=== PATIENT | female | born 1950 | race Caucasian/White ===

== ENCOUNTER 2016-12-20 19:16 | Emergency (ER) | payer BC ==
[~2016-12-20] VITALS: Ht 152.4 cm; Wt 57.3 kg
[~2016-12-20 19:16] MED LIST: advil PO; miralax PO
[2016-12-20 19:33] VITALS: Ht 152.4 cm; Wt 57.3 kg
[2016-12-20] MEDS ORDERED: SOD CHLORIDE 0.9% 1,000 ML IV STA (19:41)
[2016-12-20 20:01] LABS: ADD SCAN DIFF NO
[2016-12-20 20:03] LABS: BASOPHILS % 0.2 % (0.0-2.0); EOSINOPHILS # 0.1 10^3/ul (0.0-0.5); EOSINOPHILS % 1.2 % (0.0-7.0); HEMATOCRIT 35.9 % (37.0-47.0); HEMOGLOBIN 12.1 g/dl (12.0-16.0); LYMPHOCYTES # 2.9 10^3/ul (0.8-2.9); LYMPHOCYTES % 28.3 % (15.0-51.0); MEAN CORPUSCULAR HEMOGLOBIN 32.2 pg (29.0-33.0); MEAN CORPUSCULAR HGB CONC 33.7 g/dl (32.0-37.0); MEAN CORPUSCULAR VOLUME 95.5 fl (82.0-101.0); MEAN PLATELET VOLUME 10.9 fl (7.4-10.4); MONOCYTE # 0.7 10^3/ul (0.3-0.9); MONOCYTES % 6.5 % (0.0-11.0); NEUTROPHIL # 6.4 10^3/ul (1.6-7.5); NEUTROPHILS % 63.3 % (39.0-77.0); NUCLEATED RED BLOOD CELLS% 0.2 /100WBC (0.0-0.0); PLATELET COUNT 233 10^3/UL (140-415); RED BLOOD COUNT 3.76 10^6/ul (4.20-5.40); RED CELL DISTRIBUTION WIDTH 16.5 % (11.5-14.5); WHITE BLOOD COUNT 10.1 10^3/ul (4.8-10.8)
[2016-12-20 20:08] LABS: ADD UMIC YES; URINE BILIRUBIN (Dip) NEGATIVE (NEGATIVE); URINE BLOOD (Dip) 1+ (NEGATIVE); URINE COLOR LT. YELLOW (YELLOW); URINE GLUCOSE (Dip) NEGATIVE (NEGATIVE); URINE KETONES (Dip) NEGATIVE (NEGATIVE); URINE LEUKOCYTE ESTERASE (Dip) NEGATIVE (NEGATIVE); URINE NITRITE (Dip) NEGATIVE (NEGATIVE); URINE TOTAL PROTEIN (Dip) NEGATIVE (NEGATIVE); URINE UROBILINOGEN (Dip) 0.2 E.U./dL (0.1-1.0)
--- NOTE | 2016-12-20 20:11 | RADRPT ---
PROCEDURE: CT Brain without contrast. CLINICAL INDICATION: r/o bleed TECHNIQUE: A CT of the brain was performed on a multidetector CT scanner utilizing axial imaging f rom the skull base through the vertex without IV contrast. Multiplanar reformatted images were made . Images were reviewed on a PACS workstation. The CTDIvol is 43 mGy and the DLP is 720 mGycm. COMPARISON: None FINDINGS: Noted is an arachnoid cyst in the anterior aspect of the right middle cranial fossa measuring 2 x 1 cm. No other discrete extra-axial fluid collection or masses present. Ventricles are in the midlin e and of normal contour and configuration. No intra-axial masses or regions of abnormal attenuation are seen. There is no intracranial hemorrhage. No skull fracture is visualized. IMPRESSION: No intracranial hemorrhage or skull fracture. Small arachnoid cyst right middle cranial fossa. .Toribio Loo MD, MD Date Time Electronically viewed and signed by .Toribio Loo MD, on 12/20/2016 20:11 .A/
[2016-12-20 20:17] LABS: SQUAMOUS EPITHELIAL CELL,UR OCCASIONAL
[2016-12-20 20:27] LABS: ALBUMIN 4.3 g/dl (3.3-4.9); INR 0.89; POTASSIUM 3.5 mmol/L (3.5-5.1); PT RATIO 0.9
[2016-12-20 20:29] LABS: BILIRUBIN,INDIRECT 0.1 mg/dl (0-1.1); BILIRUBIN,TOTAL 0.1 mg/dl (0.2-1.3); CREATININE 0.73 mg/dl (0.44-1.00)
[2016-12-20 20:30] LABS: ALBUMIN/GLOBULIN RATIO 1.1; CALCIUM 9.3 mg/dl (8.4-10.2); TOTAL PROTEIN 8.2 g/dl (6.1-8.1)
[2016-12-20] MEDS ORDERED: morphine 4 MG/ML VIAL IV STA (20:31)
[2016-12-20] MEDS ORDERED: ONDANSETRON 4 MG INJ IV STA (20:31)
[2016-12-20] MEDS ORDERED: SOD CHLORIDE 0.9% 100 ML ONE (21:16)
[2016-12-20] MEDS ORDERED: IOHEXOL 100 ML ONE (21:16)
--- NOTE | 2016-12-20 22:14 | RADRPT ---
PROCEDURE: CT angiogram neck and brain. CLINICAL INDICATION: Headaches. Clinical concern for aneurysm. TECHNIQUE: The study was performed utilizing 0.6 axial sections from the thoracic inlet to the andriy misty with the use of 95 cc of Omnipaque 350 intravenous contrast. Multiplanar and rotational MIP ref ormats were obtained. 3-D reconstructions were not performed. CTDIvol = 62.57 mGy and DLP = 464.31 mGycm. COMPARISON: Noncontrast head CT of 12/20/2016 FINDINGS: CTA neck: Right carotid system: No common carotid artery occlusion or atheromatous change of significance is present. The carotid bifurcation is normal. The internal carotid artery shows no evidence for occl usion or significant stenosis. The degree of internal carotid artery stenosis is estimated at less than 30%. Left carotid system:No common carotid artery occlusion or atheromatous change of significance is pre sent. The carotid bifurcation is normal. The internal carotid artery shows no evidence for occlusi on or significant stenosis. The degree of internal carotid artery stenosis is estimated at less than 30%. Internal carotid artery stenosis estimation is based upon NASCET criteria. Right vertebral artery: Codominant with the contralateral side with normal uniform caliber througho ut and no evidence of dissection, occlusion or stenosis. Left vertebral artery: Codominant in morphology with no evidence for dissection, stenosis or occlus ion. CTA brain: Anterior circulation: The intracranial internal carotid arteries show trace atherosclerotic calcifi cation of the cavernous and supraclinoid segments but are otherwise normal bilaterally with no evide nce for occlusion or stenosis. The anterior and middle cerebral arteries are also normal with no ev idence for narrowing. There is no vasculitis pattern or extraluminal projection of contrast to sugg est an aneurysm. Posterior circulation: Basilar artery is uniform in caliber with no evidence of stenosis. The basi lar tip is unremarkable for aneurysm. The posterior cerebral arteries are normal bilaterally as are the superior cerebellar arteries. No vascular malformation is identified. Venous structures: Sagittal sinuses appear patent without evidence of thrombus. Transverse and sig moid sinuses are unremarkable as is the torcula. Internal cerebral veins, vein of Jan and straigh t sinus show no abnormalities. No cortical vein abnormality is appreciated. RPTAT:HJJR IMPRESSION: 1. Unremarkable CT angiogram of the neck with no evidence of hemodynamically significant stenosis bi laterally. 2. Unremarkable CT angiogram of the brain with no evidence of aneurysm. Santy Stock, Physician Date Time Electronically viewed and signed by Santy Stock Physician on 12/20/2016 22:13 JR/
--- NOTE | 2016-12-20 22:39 | ERD ---
ER Documentation Chief Complaint Date/Time DATE: 12/20/16 TIME: 22:37 Chief Complaint MENDEZ since AM; worse this evening HPI This is a 66-year-old female with headache since this morning. She said she took [id number] medications going on Tylenol with no relief. It got worse this evening. Denies any fevers or chills. Denies any photophobia. Denies any neck stiffness. Denies any focal neurological complaints. Denies any visual acuity changes. Denies any other current issues. Pain is mild to moderate intensity, occipital in location with no exacerbating or alleviating factors. ROS All systems reviewed and are negative except as per history of present illness. Medications Home Meds Reported Medications [advil] No Conflict Check, PO DAILY Y for PAIN AND/OR INFLAMMATION 05/06/16 [miralax] No Conflict Check, PO DAILY 05/06/16 Allergies Allergies: Coded Allergies: No Known Drug Allergy (Verified Allergy, Mild, 05/06/16) PMhx/Soc History of Surgery: Yes (cholecystectomy, colonoscopy, APPENDECTOMY, BREAST REDUCTION) Anesthesia Reaction: No Hx Neurological Disorder: Yes (SCIATICA PAIN) Hx Respiratory Disorders: No Hx Cardiac Disorders: No Hx Psychiatric Problems: No Hx Miscellaneous Medical Probl: No Hx Alcohol Use: No Hx Substance Use: No Hx Tobacco Use: No Smoking Status: Never smoker Physical Exam Vitals Vital Signs Date Time Temp Pulse Resp B/P Pulse Ox O2 Delivery O2 Flow Rate FiO2 12/20/16 19:33 98.6 78 16 146/78 100 Physical Exam Const: [] Head: Atraumatic Eyes: Normal Conjunctiva ENT: Normal External Ears, Nose and Mouth. Neck: Full range of motion..~ No meningismus. Resp: Clear to auscultation bilaterally Cardio: Regular rate and rhythm, no murmurs Abd: Soft, non tender, non distended. Normal bowel sounds Skin: No petechiae or rashes Back: No midline or flank tenderness Ext: No cyanosis, or edema Neur: Awake and alert Psych: Normal Mood and Affect Result Diagram: 12/20/16194412/20/161944 Results 24 hrs Laboratory Tests Test 12/20/16 19:45 White Blood Count 10.110^3/ul Red Blood Count 3.7610^6/ul Hemoglobin 12.1g/dl Hematocrit 35.9% Mean Corpuscular Volume 95.5fl Mean Corpuscular Hemoglobin 32.2pg Mean Corpuscular Hemoglobin Concent 33.7g/dl Red Cell Distribution Width 16.5% Platelet Count 12631^3/UL Mean Platelet Volume 10.9fl Neutrophils % 63.3% Lymphocytes % 28.3% Monocytes % 6.5% Eosinophils % 1.2% Basophils % 0.2% Nucleated Red Blood Cells % 0.2/100WBC Neutrophils # 6.410^3/ul Lymphocytes # 2.910^3/ul Monocytes # 0.710^3/ul Eosinophils # 0.110^3/ul Basophils # 0.010^3/ul Nucleated Red Blood Cells # 0.010^3/ul Prothrombin Time 12.0Sec Prothrombin Time Ratio 0.9 INR International Normalized Ratio 0.89 Urine Color LT. YELLOW Urine Clarity CLEAR Urine pH 5.5 Urine Specific [place] 1.010 Urine Ketones NEGATIVE Urine Nitrite NEGATIVE Urine Bilirubin NEGATIVE Urine Urobilinogen 0.2 E.U./dL Urine Leukocyte Esterase NEGATIVE Urine Microscopic RBC 2-5/HPF Urine Microscopic WBC 0-2/HPF Urine Squamous Epithelial Cells OCCASIONAL Urine Hemoglobin 1+ Urine Glucose NEGATIVE% Urine Total Protein NEGATIVE Sodium Level 143mmol/L Potassium Level 3.5mmol/L Chloride Level 103mmol/L Carbon Dioxide Level 26mmol/L Anion Gap 18 Blood Urea Nitrogen 13mg/dl Creatinine 0.73mg/dl Glucose Level 125mg/dl Calcium Level 9.3mg/dl Total Bilirubin 0.1mg/dl Direct Bilirubin 0.00mg/dl Indirect Bilirubin 0.1mg/dl Aspartate Amino Transf (AST/SGOT) 22IU/L Alanine Aminotransferase (ALT/SGPT) 30IU/L Alkaline Phosphatase 119IU/L Total Protein 8.2g/dl Albumin 4.3g/dl Globulin 3.90g/dl Albumin/Globulin Ratio 1.10 Lipase 63U/L Current Medications Medications (Trade) Dose Ordered Sig/Noemí Route PRN Reason Start Time Stop Time Status Last Admin Dose Admin Sodium Chloride (NS) 1,000 ml @ 1,000 mls/hr Q1H STAT IV 12/20/16 19:41 12/20/16 20:40 DC 12/20/16 20:26 Ondansetron HCl (Zofran Inj) 4 mg ONCE STAT IV 12/20/16 20:31 12/20/16 20:33 DC 12/20/16 20:56 Morphine Sulfate (morphine) 4 mg ONCE STAT IV 12/20/16 20:31 12/20/16 20:33 DC 12/20/16 20:50 IV Flush 10 ml 10 ml STK-MED ONCE .ROUTE 12/20/16 21:16 12/20/16 21:17 DC Sodium Chloride 100 ml @ ud STK-MED ONCE .ROUTE 12/20/16 21:16 12/20/16 21:17 DC Iohexol (Omnipaque) 100 ml @ ud STK-MED ONCE .ROUTE 12/20/16 21:16 12/20/16 21:17 DC Procedures/MDM EKG: Rate/Rhythm: [Normal Sinus Rhythm] QRS, ST, T-waves: [No changes consistent w/ acute ischemia] Impression: [No evidence of ischemia or arrhythmia] Head CT is negative CT angiogram of the neck and brain were negative Medical decision-m[age] year female with a headache that is resolved with administration of pain medication in the emergency room. At this point clinically stable for outpatient management. Discharge home with tramadol and Zofran. Strict return precautions given to the patient at the bedside. Departure Diagnosis: Primary Impression: Headache Headache type: unspecified Headache chronicity pattern: acute headache Intractability: not intractable Qualified Code: R51 - Acute nonintractable headache, unspecified headache type Condition: Stable LORENZO CHRISTIANSON December 20, 2016 22:39
[2016-12-20] MEDS ORDERED: ONDA4TAB14 PO (22:41)
[2016-12-20] MEDS ORDERED: TRAM50TA2 PO (22:41)
[2016-12-20] MEDS ORDERED: KETOROLAC 15 MG INJ IV STA (23:03)
[2016-12-20 23:30] VITALS: BP 134/67; PULSE 84; RESP 15; TEMP 98.7
== END 2016-12-20 23:30 | disposition home or self-care (01) ==
LOC: E/R 19:16
DX: R51 Headache (principal)
CPT/HCPCS: 36415; 70450; 70496; 70498; 80053; 81001; 83690; 85025; 85610; 96374; 96375; 99285; J1885; J2270; J2405; J7030; Q9967; 81003

== ENCOUNTER 2017-11-12 09:00 | Day surgery (SDC) | END 2017-11-12 11:45 | disposition home or self-care (01) ==

== ENCOUNTER → 2018-01-19 | Outpatient (CLI) | END | disposition home or self-care (01) ==

== ENCOUNTER 2018-03-30 20:01 | Emergency (ER) | END 2018-03-30 22:00 | disposition home or self-care (01) ==

== ENCOUNTER 2019-04-23 17:47 | Emergency (ER) | payer BC ==
[~2019-04-23] VITALS: Wt 59.1 kg
[~2019-04-23 17:47] MED LIST changes: +ACYC800T5 PO; +BEN50 PO; +BUTA1CAP38 PO; +IBUP-1542 PO; +PANTOPRAZOLE; -advil PO; -miralax PO
[2019-04-23 17:49] VITALS: BP 143/67; PULSE 62; RESP 20
[2019-04-23] MEDS ORDERED: IBUPROFEN 200 MG TAB PO ONE (19:30)
[2019-04-23] MEDS ORDERED: ACETAMINOPHEN 325 MG TAB PO ONE (19:30)
== END 2019-04-23 23:21 | disposition home or self-care (01) ==
LOC: FTE 17:47
DX: G44.209 Tension-type headache, unspecified, not intractable (principal)
CPT/HCPCS: 70450